=== PATIENT | female | born 1995 ===

== ENCOUNTER 2019-09-08 15:25 | Emergency (ER) | payer OTHER ==
[2019-09-08 15:51] VITALS: BP 117/87
--- NOTE | 2019-09-08 17:07 | UC ---
FLU HPI - HPI Summary HPI Summary: Patient is a 24-year-old female presenting with sore throat, nasal congestion, mild cough, body aches, fever, chills since yesterday. Patient states concern for strep throat because she is "prone to it." Denies shortness of breath and wheezing. Denies nausea and vomiting. Denies taking anything for symptom relief. - History of Current Complaint Chief Complaint: UCRespiratory Stated Complaint: SORE THROAT Hx Obtained From: Patient Pain Intensity: 9 Pain Scale Used: 0-10 Numeric - Allergy/Home Medications Allergies/Adverse Reactions: Allergies Allergy/AdvReac Type Severity Reaction Status Date / Time amoxicillin [From Augmentin] Allergy Rash Verified 09/08/19 15:45 cefaclor [From Ceclor] Allergy Rash Verified 09/08/19 15:45 clavulanic acid Allergy Rash Verified 09/08/19 15:45 [From Augmentin] Penicillins Allergy Rash Verified 09/08/19 15:45 Sulfa (Sulfonamide Allergy Hives Verified 09/08/19 15:45 Antibiotics) sulfamethoxazole Allergy Hives Verified 09/08/19 15:45 [From Bactrim] trimethoprim [From Bactrim] Allergy Hives Verified 09/08/19 15:45 Home Medications: Home Medications ARIPiprazole TAB* [Abilify TAB*] 4 mg QAM 09/08/19 [History Confirmed 09/08/19] Albuterol HFA INHALER* [Ventolin HFA Inhaler*] 2 puff INH Q4H PRN 09/08/19 [ History Confirmed 09/08/19] Amphetamine MIXED SALTS TAB* [Adderall TAB*] 20 - 30 mg PO DAILY 09/08/19 [ History Confirmed 09/08/19] Escitalopram * [Lexapro *] 15 mg QAM 09/08/19 [History Confirmed 09/08/19] Levonorgestrel (Iud) [Liletta IUD] 1 implant ONCE 09/08/19 [History Confirmed ] Oseltamivir CAP* [Tamiflu CAP*] 75 mg PO BID #10 cap 09/08/19 [Rx] PMH/Surg Hx/FS Hx/Imm Hx - Surgical History Surgical History: None - Family History Known Family History: Positive: Non-Contributory - Social History Alcohol Use: Weekly Alcohol Amount: every other week Substance Use Type: Marijuana Smoking Status (MU): Former Smoker Review of Systems All Other Systems Reviewed And Are Negative: Yes Constitutional: Positive: Fever, Chills, Fatigue ENT: Positive: Sore Throat, Sinus Congestion Respiratory: Positive: Negative, Cough. Negative: Shortness Of Breath Cardiovascular: Positive: Negative Gastrointestinal: Positive: Negative Musculoskeletal: Positive: Myalgia Neurological/Mental Status: Positive: Negative Physical Exam - Summary Physical Exam Summary: Vital Signs Reviewed: Yes A+Ox3, no distress, well-appearing Eyes: Conjunctiva Clear ENT: Hearing grossly normal, TM x 2 clear, moist, uvula midline, no exudate, + pharyngeal erythema Neck: Positive: Supple Respiratory: Positive: No respiratory distress, No accessory muscle use + CTA throughout no w/r Cardiovascular: RRR nl s1, s2 no m/r Musculoskeletal Exam: HYDE x 4 without difficulty Neurological: Positive: Alert Psychological: Positive: age appropriate behavior Skin: Positive: no rash, no ecchymosis Vital Signs: Initial Vital Signs Temp 97.7 F 09/08/19 15:47 Pulse 107 09/08/19 15:47 Resp 16 09/08/19 15:47 BP 117/87 09/08/19 15:47 Pulse Ox 100 09/08/19 15:47 Lab Results 09/08/19 09/08/19 Range/Units 17:04 17:05 Influenza A (Rapid) Positive H (Negative) Group A Strep Rapid Negative (Negative) Flu Course/Dx - Course Course Of Treatment: Rapid flu positive. Negative rapid strep. Educated patient on influenza and tamiflu. Patient prefers to take tamiflu at this time. I treated patient with Tamiflu and instructed to continue with symptomatic treatment. Instructed to follow up with pcp for any new or worsening symptoms. Patient voiced understanding and agreed with treatment plan. - Differential Dx/Diagnosis Provider Diagnosis: Influenza A Discharge ED - Sign-Out/Discharge Documenting (check all that apply): Patient Departure All imaging exams completed and their final reports reviewed: No Studies - Discharge Plan Condition: Stable Disposition: HOME Prescriptions: Oseltamivir CAP* [Tamiflu CAP*] 75 mg PO BID #10 cap Patient Education Materials: Influenza (ED) Referrals: [facility] [Outside] - If Needed Additional Instructions: As discussed, you tested positive for influenza A today. Take tamiflu as prescribed. You may take ibuprofen and/or tylenol as directed for fever and pain relief. Get plenty of rest and increase your fluid intake. Follow up with your primary care provider or the [facility] listed below with any new or worsening symptoms. - Billing Disposition and Condition Condition: STABLE Disposition: Home
[2019-09-08 17:10] LABS: Influenza A Molecular POSITIVE (Negative)
== END 2019-09-08 17:25 | disposition home or self-care (01) ==
LOC: UCEAST 15:25
DX: J10.1 Influenza due to other identified influenza virus with other respiratory manifestations (principal); Z88.0 Allergy status to penicillin; Z88.1 Allergy status to other antibiotic agents; Z88.2 Allergy status to sulfonamides; Z87.891 Personal history of nicotine dependence
CPT/HCPCS: 87651; 99202; G0463